=== PATIENT | female | born 2005 | race Caucasian/White ===

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

== ENCOUNTER 2023-09-21 11:28 | Emergency (ER) | payer OTHER ==
[~2023-09-21] VITALS: Ht 154.9 cm; Wt 80.3 kg
[~2023-09-21 11:28] MED LIST changes: +AMOX-CLAV 875-1 EACH PO
[2023-09-21 12:23] LABS: BILIRUBIN Negative (Negative); BLOOD Negative (Negative); CLARITY Clear (Clear); COLOR Yellow (Yellow); GLUCOSE Negative (Negative); KETONE Negative (Negative); LEUKO ESTERASE 1+ (Negative); NITRITE Negative (Negative); PH 6.5 (4.5-8.0)
[2023-09-21 12:37] LABS: BACTERIA 1+; CALCIUM OXALATE CRYSTALS 1+; EPITHELIAL CELLS 16-20
[2023-09-21] MEDS ORDERED: Ondansetron Hydrochloride 4 MG TAB SL ONE (12:45)
[2023-09-21 13:02] LABS: BASO % 0.1 % (0.0-1.0); EOS % 0.1 % (1.0-4.0); HEMATOCRIT 35.2 % (37.0-47.0); LYMPH # 1.2 10*3/uL (1.3-4.4); LYMPH % 10.9 % (27.0-41.0); MEAN CORPUSCULAR HGB 30.7 pg (27.0-31.0); MEAN CORPUSCULAR HGB CONC 33.8 g/dl (33.0-37.0); MEAN PLATELET VOLUME 10.4 fl (9.6-12.3); MONO # 0.9 10*3/uL (0.1-1.0); MONO % 7.7 % (3.0-9.0); NEUT # 8.9 10*3/uL (2.3-7.9); NEUT % 80.8 % (47.0-73.0); PLATELET COUNT AUTOMATED 162 10*3/uL (130-400); RED BLOOD COUNT 3.87 10*6/uL (4.10-5.10); RED CELL DISTRI WIDTH 13.3 % (0-14.5)
[2023-09-21 13:58] LABS: ALKALINE PHOSPHATASE 93 U/L (46-116); BUN < 5 mg/dl (9-23); CHLORIDE 104 mmol/L (98-107); LIPASE 32 U/L (12-53); POTASSIUM 3.6 mmol/L (3.4-5.1); SGPT/ALT 8 U/L (5-49); TOTAL PROTEIN 6.5 gm/dL (6.0-8.0)
[2023-09-21] MEDS ORDERED: CEPHALEXIN500 M1 PO (14:30)
[2023-09-21] MEDS ORDERED: ONDANSETRON4 MG SL (14:30)
[2023-09-21] MEDS ORDERED: CEPHALEXIN 500 MG CAP PO ONE (14:35)
== END 2023-09-21 15:00 | disposition home or self-care (01) ==
LOC: ED 11:28
PROVIDERS: Internal Medicine; Nurse Practitioner Family
DX: O23.41 Unspecified infection of urinary tract in pregnancy, first trimester (principal); N39.0 Urinary tract infection, site not specified; R11.0 Nausea; F31.9 Bipolar disorder, unspecified; J45.909 Unspecified asthma, uncomplicated; G43.909 Migraine, unspecified, not intractable, without status migrainosus; Z3A.13 13 weeks gestation of pregnancy; Z98.890 Other specified postprocedural states; Z87.891 Personal history of nicotine dependence

== ENCOUNTER 2023-12-26 16:23 | Emergency (ER) | payer OTHER ==
[~2023-12-26] VITALS: Ht 154.9 cm; Wt 79.4 kg
[~2023-12-26 16:23] MED LIST changes: +ONDANSETRON4 MG SL
[2023-12-26] MEDS ORDERED: LORazepam 2 MG/ML VIAL IV ONE (16:35)
[2023-12-26] MEDS ORDERED: SODIUM CHLORIDE 0.9% 1,000 ML IV ONE (16:35)
[2023-12-26 16:53] LABS: BASO % 0.2 % (0.0-1.0); EOS # 0.1 10*3/uL (0.0-0.4); EOS % 0.6 % (1.0-4.0); HEMATOCRIT 35.1 % (37.0-47.0); LYMPH # 2.6 10*3/uL (1.3-4.4); LYMPH % 15.9 % (27.0-41.0); MEAN CELL VOLUME 90.9 fl (81.0-99.0); MEAN CORPUSCULAR HGB 31.1 pg (27.0-31.0); MEAN CORPUSCULAR HGB CONC 34.2 g/dl (33.0-37.0); MEAN PLATELET VOLUME 10.5 fl (9.6-12.3); MONO # 0.8 10*3/uL (0.1-1.0); MONO % 5.2 % (3.0-9.0); NEUT # 12.4 10*3/uL (2.3-7.9); NEUT % 77.4 % (47.0-73.0); PLATELET COUNT AUTOMATED 233 10*3/uL (130-400); RED BLOOD COUNT 3.86 10*6/uL (4.10-5.10); RED CELL DISTRI WIDTH 13.5 % (0-14.5); WHITE BLOOD COUNT 16.1 10*3/uL (4.8-10.8)
[2023-12-26 17:07] LABS: CHLORIDE 107 mmol/L (98-107); POTASSIUM 3.5 mmol/L (3.4-5.1)
[2023-12-26 17:12] LABS: BUN < 5 mg/dl (9-23)
== END 2023-12-26 18:03 | disposition home or self-care (01) ==
LOC: ED 16:23
PROVIDERS: Emergency Medicine
DX: R20.0 Anesthesia of skin (principal); F41.9 Anxiety disorder, unspecified; G43.909 Migraine, unspecified, not intractable, without status migrainosus; J45.909 Unspecified asthma, uncomplicated; Z98.890 Other specified postprocedural states

== ENCOUNTER 2024-01-06 09:46 | Emergency (ER) | payer OTHER ==
[~2024-01-06] VITALS: Ht 154.9 cm; Wt 79.8 kg
[2024-01-06] MEDS ORDERED: AMOX-CLAV 875-1 EACH PO (11:20)
[2024-01-06] MEDS ORDERED: Amoxicillin/Clavulanate Pota 875 MG TAB PO ONE (11:25)
== END 2024-01-06 11:21 | disposition home or self-care (01) ==
LOC: ED 09:46
DX: K02.9 Dental caries, unspecified (principal); R22.0 Localized swelling, mass and lump, head; F31.9 Bipolar disorder, unspecified; G43.909 Migraine, unspecified, not intractable, without status migrainosus; Z98.890 Other specified postprocedural states

== ENCOUNTER 2024-02-15 17:22 | Emergency (ER) | payer OTHER ==
[~2024-02-15] VITALS: Ht 154.9 cm; Wt 81.7 kg
[2024-02-15] MEDS ORDERED: TYLENOL325 M1 PO (18:15)
[2024-02-15] MEDS ORDERED: ACETAMINOPHEN 325 MG TAB PO ONE (18:15)
[2024-02-15] MEDS ORDERED: Amoxicillin/Clavulanate Pota 875 MG TAB PO ONE (18:15)
[2024-02-15] MEDS ORDERED: AMOX-CLAV 875-1 EACH PO (18:15)
== END 2024-02-15 18:17 | disposition home or self-care (01) ==
LOC: ED 17:22
DX: O26.893 Other specified pregnancy related conditions, third trimester (principal); K03.81 Cracked tooth; K08.89 Other specified disorders of teeth and supporting structures; F17.210 Nicotine dependence, cigarettes, uncomplicated; Z3A.34 34 weeks gestation of pregnancy

== ENCOUNTER 2024-10-16 02:40 | Emergency (ER) | payer OTHER ==
[~2024-10-16] VITALS: Ht 165.1 cm; Wt 79.4 kg
[2024-10-16 03:23] LABS: BASO % 0.2 % (0.0-1.0); EOS # 0.2 10*3/uL (0.0-0.4); EOS % 1.8 % (1.0-4.0); HEMATOCRIT 33.2 % (37.0-47.0); MEAN CELL VOLUME 87.8 fl (81.0-99.0); MEAN CORPUSCULAR HGB 28.8 pg (27.0-31.0); MEAN CORPUSCULAR HGB CONC 32.8 g/dl (33.0-37.0); MEAN PLATELET VOLUME 10.3 fl (9.6-12.3); MONO # 0.7 10*3/uL (0.1-1.0); NEUT # 5.1 10*3/uL (2.3-7.9); NEUT % 58.7 % (47.0-73.0); PLATELET COUNT AUTOMATED 234 10*3/uL (130-400); RED BLOOD COUNT 3.78 10*6/uL (4.10-5.10); RED CELL DISTRI WIDTH 13.6 % (0-14.5); WHITE BLOOD COUNT 8.7 10*3/uL (4.8-10.8)
[2024-10-16 03:58] LABS: BUN 7 mg/dl (9-23); CHLORIDE 105 mmol/L (98-107); POTASSIUM 3.6 mmol/L (3.4-5.1)
[2024-10-16] MEDS ORDERED: ACETAMINOPHEN 325 MG TAB PO ONE (04:20)
== END 2024-10-16 04:43 | disposition home or self-care (01) ==
LOC: ED 02:40
PROVIDERS: Emergency Medicine
DX: O03.9 Complete or unspecified spontaneous abortion without complication (principal); R10.2 Pelvic and perineal pain; J45.909 Unspecified asthma, uncomplicated; Z3A.00 Weeks of gestation of pregnancy not specified; Z79.899 Other long term (current) drug therapy; Z98.890 Other specified postprocedural states

== ENCOUNTER 2025-01-30 17:51 | Emergency (ER) | payer OTHER ==
[~2025-01-30] VITALS: Ht 154.9 cm; Wt 83.5 kg
[2025-01-30] MEDS ORDERED: BENZOCAINE 20% 11.9 GM GEL T STA (18:49)
[2025-01-30] MEDS ORDERED: Amoxicillin/Clavulanate Pota 875 MG TAB PO ONE (18:50)
[2025-01-30] MEDS ORDERED: AMOX-CLAV 875-1 EACH PO (18:53)
== END 2025-01-30 19:06 | disposition home or self-care (01) ==
LOC: ED 17:51
DX: K02.9 Dental caries, unspecified (principal); F17.290 Nicotine dependence, other tobacco product, uncomplicated